=== PATIENT | male | born 1995 | race Caucasian/White ===

== ENCOUNTER 2016-11-06 07:37 | Day surgery (SDC) | payer OTHER ==
[~2016-11-06 07:37] MED LIST: ACETAMINOPHEN 1,000 MG/100 ML 100 ML IV ONE; CELECOXIB 100 MG CAPSULE PO ONE; ceFAZolin 2 GM/50 ML 50 ML IV ONE
[2016-11-06] MEDS ORDERED: LACTATED RINGERS 1,000 ML IV ONE (08:08)
[2016-11-06] MEDS ORDERED: NEOSTIGMINE 1 MG/1 ML 10 ML MDV IVP ONE (11:00)
[2016-11-06] MEDS ORDERED: ROPIVACAINE 0.5% PF 20 ML AMPULE EP ONE (11:00)
[2016-11-06] MEDS ORDERED: GLYCOPYRROLATE 1 MG/5 ML VIAL IVP ONE (11:00)
[2016-11-06] MEDS ORDERED: LIDOCAINE-MPF 2% 5 ML VIAL IM ONE (11:00)
[2016-11-06] MEDS ORDERED: DEXAMETHASONE 4 MG/ML VIAL IVP ONE (11:00)
[2016-11-06] MEDS ORDERED: MIDAZOLAM 2 MG/2 ML VIAL IVP ONE (11:00)
[2016-11-06] MEDS ORDERED: ROCURONIUM 50 MG/5 ML VIAL IVP ONE (11:00)
[2016-11-06] MEDS ORDERED: ONDANSETRON 4 MG/2 ML VIAL IVP ONE (11:00)
[2016-11-06] MEDS ORDERED: PROPOFOL 200 MG/20 ML VIAL IVP ONE (11:00)
[2016-11-06] MEDS ORDERED: fentaNYL 100 MCG/2 ML VIAL IVP ONE (11:00)
[2016-11-06] MEDS ORDERED: EPINEPHrine 1 MG/ML AMP IR ONE (12:19)
== END 2016-11-06 07:38 | disposition home or self-care (01) ==
PROC: 0LQ24ZZ Repair Left Shoulder Tendon, Percutaneous Endoscopic Approach (ICD-10-PCS; 2016-11-06)
PROC: 0RNK4ZZ Release Left Shoulder Joint, Percutaneous Endoscopic Approach (ICD-10-PCS; principal; 2016-11-06 10:00)
DX: M25.312 Other instability, left shoulder (principal); M75.42 Impingement syndrome of left shoulder; F17.220 Nicotine dependence, chewing tobacco, uncomplicated; F17.210 Nicotine dependence, cigarettes, uncomplicated
CPT/HCPCS: 29826; 29999; A9270; C1713; J0131; J0690; J7120

== ENCOUNTER 2017-04-27 18:43 | Emergency (ER) | payer OTHER ==
[2017-04-27] MEDS ORDERED: HYDROcod/ACET 5/325 Prepack 6 PO ONE ×2 (20:40→20:50)
--- NOTE | 2017-04-27 20:40 | ED Physician Documentation ---
PD HPI UPPER EXT INJURY - Stated complaint Stated Complaint: L WRIST INJURY - Chief complaint Chief Complaint: Ext Problem - History obtained from History obtained from: Patient, Friend - History of Present Illness Location: Right, Wrist Type of injury: Fall Where injury occurred: [place] Timing - onset: Today Timing - duration: Hours Timing - details: Abrupt onset, Still present Improved by: Rest, Ice, Immobilization Worsened by: Moving, Palpating Associated symptoms: Swelling. 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 Review of Systems Constitutional: denies: Fever Respiratory: denies: Cough GI: denies: Vomiting Skin: denies: Rash Musculoskeletal: reports: Extremity pain, Joint pain, Joint swelling Neurologic: denies: Generalized weakness, Focal weakness, Numbness PD PAST MEDICAL HISTORY - Past Medical History Past Medical History: Yes Cardiovascular: Hypertension Respiratory: None Endocrine/Autoimmune: None GI: None : None HEENT: None Psych: None Musculoskeletal: Other Derm: None - Past Surgical History Past Surgical History: Yes - Present Medications Home Medications: Ambulatory Orders Medication Instructions Recorded Confirmed Cyclobenzaprine [Flexeril] 10 mg PO 10/12/16 Zolmitriptan [Zomig] 5 mg PO 10/12/16 - Allergies Allergies/Adverse Reactions: Allergies Allergy/AdvReac Type Severity Reaction Status Date / Time No Known Drug Allergies Allergy Verified 10/12/16 12:14 - Social History Does the pt smoke?: Yes Smoking Status: Current every day smoker Does the pt drink ETOH?: Yes ETOH Use: Beer Does the pt have substance abuse?: No - Immunizations Immunizations are current?: Yes PD ED PE NORMAL - Vitals Vital signs reviewed: Yes (hypertensive ) - General General: No acute distress, Well developed/nourished - HEENT HEENT: Atraumatic, PERRL - Respiratory Respiratory: No respiratory distress - Derm Derm: Normal color, Warm and dry, No rash - Extremities Extremities: Other (There is swelling and tenderness to the distal volar ulna and the to dorsal distal radius. The distal n/v is intact. ) - Neuro Neuro: No motor deficit, No sensory deficit - Psych Psych: Normal mood, Normal affect Results - Vitals Vitals: Vital Signs - 24 hr 04/27/17 04/27/17 18:54 20:55 Temperature 37.2 C Heart Rate 100 99 Respiratory 18 20 Rate Blood Pressure 138/82 H 133/86 H O2 Saturation 97 97 Oxygen O2 Source Room air - Rads (name of study) left wrist. Radiology: Prelim report reviewed (Impression: Mildly displaced ulnar styloid and radial metaphyseal fractures.), EMP read indepedently, See rad report PD MEDICAL DECISION MAKING - ED course Complexity details: reviewed results, re-evaluated patient, considered differential, d/w patient, d/w family ED course: 22-year-old male with a FOOSH has a mildly displaced fracture and has been placed into a splint prior to arrival here the splint is reapplied and the patient will follow-up with Orth at [facility] . Departure - Departure Disposition: 01 Home, Self Care Clinical Impression: Wrist fracture, left Qualifiers: Encounter type: initial encounter Fracture type: closed Qualified Code(s): S62.102A - Fracture of unspecified carpal bone, left wrist, initial encounter for closed fracture Condition: Stable Instructions: ED Fx Wrist General Follow-Up: CADE MOON [Primary Care Provider] - Discharge Date/Time: 04/27/17 20:55
--- NOTE | 2017-04-27 20:42 | XRAY Preliminary Report ---
Exam: XR Wrist 4 View LT IMPRESSION: Mildly displaced ulnar styloid and radial metaphyseal fractures. [facility] SITE ID: [id number]
--- NOTE | 2017-04-27 20:44 | XRAY Report ---
EXAM: LEFT WRIST RADIOGRAPHY EXAM DATE: 04/27/2017 08:17 PM. CLINICAL HISTORY: Pain s/p fall. COMPARISON: None. TECHNIQUE: 4 views. FINDINGS: Bones: Mild displaced fractures of the ulnar styloid in the radial metaphysis. No other traumatic or destructive bony abnormalities. Joints: Normal. No subluxations. Soft Tissues: Dissociated soft tissue swelling. IMPRESSION: Mildly displaced ulnar styloid and radial metaphyseal fractures. [facility] Referring Provider Line: [phone] SITE ID: [id number]
[2017-04-27 20:58] VITALS: BP 133/86
== END 2017-04-27 20:55 | disposition home or self-care (01) ==
LOC: ED 18:43
DX: S52.612A Displaced fracture of left ulna styloid process, initial encounter for closed fracture (principal); W18.30XA Fall on same level, unspecified, initial encounter; Y93.62 Activity, american flag or touch football; Y92.830 Public park as the place of occurrence of the external cause; F17.200 Nicotine dependence, unspecified, uncomplicated
CPT/HCPCS: 99283

== ENCOUNTER 2017-08-25 08:49 | Outpatient (CLI) | payer OTHER ==
[2017-08-25] MEDS ORDERED: IOTHALAMATE MEGLUMINE 50 ML VIAL ONE (09:11)
[2017-08-25] MEDS ORDERED: GADOPENTETATE DIMEGLUMINE 5 ML VIAL IVP ONE ×2 (09:12→09:48)
[2017-08-25] MEDS ORDERED: IOTHALAMATE MEGLUMINE 50 ML VIAL IVP ONE (09:48)
[2017-08-25] MEDS ORDERED: BUFFERED LIDOCAINE 10 ML SYRINGE IU ONE (09:48)
--- NOTE | 2017-08-25 13:22 | XRAY Report ---
DATE OF SERVICE: 08/25/2017 FLUOROSCOPICALLY GUIDED LEFT SHOULDER INJECTION FOR MR ARTHROGRAM: 08/25/2017 CLINICAL INDICATION: Pain, recurrent. Posterior dislocation. FINDINGS: Following obtaining informed consent, the patient's left shoulder was prepped and draped in the usual sterile fashion. The skin and soft tissues were anesthetized with lidocaine. A spinal needle was inserted into the left glenohumeral joint, and following confirmation of needle positioning, a combination of iodinated contrast, dilute gadolinium, and lidocaine were injected intraarticularly. The patient tolerated the procedure well. No immediate complications. Spot image demonstrates no evidence of contrast extravasation. IMPRESSION: Successful left shoulder injection for MR arthrogram. FLUOROSCOPY TIME: 31 seconds; 1 spot image obtained. TD: 08/25/2017 14:21
--- NOTE | 2017-08-25 16:53 | MRI Report ---
EXAM: LEFT SHOULDER MRI ARTHROGRAM WITH CONTRAST EXAM DATE: 08/25/2017 10:32 AM. CLINICAL HISTORY: Left shoulder pain and decreased range of motion. Previous labral surgery on 2016. Glenohumeral joint instability. COMPARISON: Left shoulder MR arthrogram from 07/27/2016. TECHNIQUE: Multiplanar, multisequence T1-weighted and fluid-sensitive sequences of the shoulder after an arthrographic injection of dilute gadolinium, dictated under a separate exam. Other: None. FINDINGS: Acromioclavicular Region: The acromion is type II. The acromioclavicular joint is unremarkable. The c oracoacromial and coracoclavicular ligaments are intact. There is no contrast or fluid in the subacro mial/subdeltoid bursa. Glenohumeral Region: No subluxation. No loose bodies. The articular cartilage is unremarkable. The gl enohumeral ligaments and joint capsule are unremarkable. Bone Marrow: Mild focal subcortical marrow edema and early subcortical cystic changes at the posterio r superior aspect of the humeral head which is new since the previous study. Labrum: Slight blunting at the free edge of the posterior superior aspect of the labrum which may be postoperative in etiology. Tiny postoperative artifacts adjacent to the posterior superior aspect of the labrum. No definite recurrent labral tear is seen. Biceps Tendon: The long head of the biceps tendon and biceps shadi are intact. Musculature/Rotator Cuff: The subscapularis, supraspinatus, infraspinatus, and teres minor tendons ar e intact. No edema or fatty atrophy. Other: The subcutaneous tissues are unremarkable. IMPRESSION: 1. Slight blunting at the free edge of the posterior superior aspect of the labrum, which may be post operative in etiology. No definite recurrent labral tear is seen. 2. No rotator cuff tear. 3. Mild focal subcortical marrow edema and early subcortical cystic changes at the posterior superior aspect of the humeral head which is new since the previous study. This may be degenerative or posttr aumatic in etiology. [facility] MUSCULOSKELETAL RADIOLOGY SECTION Referring Provider Line: [phone] SITE ID: [id number]
== END 2017-08-25 08:50 | disposition home or self-care (01) ==
LOC: DI 08:49
PROVIDERS: ATTEND Orthopaedic Surgery
DX: M25.512 Pain in left shoulder (principal); M85.612 Other cyst of bone, left shoulder
CPT/HCPCS: 23350; 73222; 77002; Q9961